=== PATIENT | female | born 1960 | race Caucasian/White ===

== ENCOUNTER 2022-07-10 08:06 | Day surgery (SDC) | payer OTHER, BC ==
[~2022-07-10] VITALS: Ht 162.6 cm; Wt 74.8 kg
[2022-07-10] MEDS ORDERED: SEVOFLURANE 15 MIN GAS INH ONE (10:57)
[2022-07-10] MEDS ORDERED: PROPOFOL 200MG/ 20ML VIAL (DIPRIVAN) IV ONE (10:57)
[2022-07-10] MEDS ORDERED: OXYMETAZOLINE HCL 0.05% NASAL SPRAY NS ONE (10:57)
[2022-07-10] MEDS ORDERED: SUCCINYLCHOLINE CHLORIDE 20 MG/ML(QUELICIN) ONE (10:57)
[2022-07-10] MEDS ORDERED: LIDOCAINE/EPI 1% 1:100000 20 ML VIAL ONE (10:57)
[2022-07-10] MEDS ORDERED: ONDANSETRON HCL 4 MG/2 ML VIAL ONE (10:57)
[2022-07-10] MEDS ORDERED: EPINEPHrine HCL 1 MG/ML VIAL ONE (10:57)
[2022-07-10] MEDS ORDERED: GLYCOPYRROLATE 0.2 MG/ML VIAL ONE (10:57)
[2022-07-10] MEDS ORDERED: LR 1,000 ML IV.SOLN IV ONE (10:57)
[2022-07-10] MEDS ORDERED: NS 1000 ML IV.SOLN IV ONE (10:57)
[2022-07-10] MEDS ORDERED: ROCURONIUM BROMIDE 10 MG/ML (ZEMURON) ONE (10:57)
[2022-07-10] MEDS ORDERED: WATER FOR IRRIGATION,STERILE 1,000 ML IRRIG.SOLN IR ONE (10:57)
[2022-07-10] MEDS ORDERED: DEXAMETHASONE SOD PHOSPHATE 4 MG/ML VIAL ONE (10:57)
[2022-07-10] MEDS ORDERED: MUPIROCIN 2% TOPICAL OINTMENT 22 GM ONE (10:57)
[2022-07-10] MEDS ORDERED: PHENYLEPHRINE HCL 10 MG/ML VIAL (NEOSYNEPHRINE) ONE (10:57)
[2022-07-10] MEDS ORDERED: NS IRRIG SOLN 1000 ML IR ONE (10:57)
[2022-07-10] MEDS ORDERED: HYDROmorphone 1 MG/ML INJ. CARTRIDGE IVP PRN (13:15)
[2022-07-10] MEDS ORDERED: ALBUTEROL SULFATE 0.083% 2.5 MG/3 ML VIAL.NEB INH ONE (13:15)
[2022-07-10] MEDS ORDERED: hydrALAZINE HCL 20 MG/ML VIAL IVP PRN (13:15)
[2022-07-10] MEDS ORDERED: ONDANSETRON HCL 4 MG/2 ML VIAL IVP PRN (13:15)
[2022-07-10] MEDS ORDERED: METOCLOPRAMIDE HCL 10 MG/2 ML VIAL IVP PRN (13:15)
[2022-07-10] MEDS ORDERED: HYDROmorphone 1 MG/ML INJ. CARTRIDGE ONE (13:45)
[2022-07-10 17:24] VITALS: BP_SYST 166
== END 2022-07-10 16:15 | disposition home or self-care (01) ==
LOC: SDS 08:06 → SMU 08:12 → SDS 16:15
PROVIDERS: ATTEND Otolaryngology
DX: J34.2 Deviated nasal septum (principal); D38.5 Neoplasm of uncertain behavior of other respiratory organs; J34.89 Other specified disorders of nose and nasal sinuses; I10 Essential (primary) hypertension; K21.9 Gastro-esophageal reflux disease without esophagitis; Z88.5 Allergy status to narcotic agent; Z79.01 Long term (current) use of anticoagulants; Z79.899 Other long term (current) drug therapy
CPT/HCPCS: 30140; 30520; 31255; 31298; 31256; 87070; 87075; 94640; 94760; 87101; 88304; 88305; 88311; J1100; J0171; J3490; J2405; J2370; J2704; J0330; J1170; J7613; J7120; J7030; C1726